=== PATIENT | male | born 1965 | race Caucasian/White ===

== ENCOUNTER 2018-03-02 05:42 | Emergency (ER) | payer OTHER ==
--- NOTE | 2018-03-02 06:16 | EDM.PDOC ---
ED HPI GENERAL MEDICAL PROBLEM - General Chief Complaint: Upper Extremity Injury/Pain Stated Complaint: INJURED R SHOULDER & SIDE AT WORK Time Seen by Provider: 03/02/18 06:10 Source of Information: Reports: Patient History Limitations: Reports: No Limitations - History of Present Illness INITIAL COMMENTS - FREE TEXT/NARRATIVE: 53-year-old male attends the ED due to pain in his anterior posterior right shoulder and the distribution of the right posterior lateral chest particular in the distribution of the latissimus dorsi muscle. He reports he was injured in the workplace about 10:30 yesterday morning. States he was pushing a hole was off of the truck and it became entangled in a bracket and sprung back on him creating a tremendous jolt or jerking movement involving his right arm and shoulder. He appreciated pain in the superior part of her shoulder in the distribution of the trapezius and superior spinatus muscle group most of the day. Hour during the night he is developed increased pain in his right posterior lateral ribs and thorax in the distribution of the latissimus dorsi muscle. He also appreciates a prominent bone on his anterior right shoulder that was not there prior. Clinically it appears that he is his A-C joint. He states the only thing that kept him from falling backwards onto the ground was 90 was still hanging onto the hose. Been taking Motrin 200 mg when necessary and Tylenol with minimal relief. Did not sleep very well last night. 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 Onset: Sudden Onset Date: 03/01/18 Onset Time: 10:30 (Work related injury as described above) Duration: Hour(s): Location: Reports: Chest (Right posterior lateral thorax), Upper Extremity, Right (Right shoulder and acromioclavicular joint area.) Quality: Reports: Ache, Sharp, Stabbing (With certain movements) Severity: Moderate Improves with: Reports: Rest Worsens with: Reports: Movement (Of the right arm. Particularly forward flexing or abducting.) Context: Reports: Trauma (Bilaterally jerked/jolted by pushing a large hose off of his truck yesterday when it became entangled in a bracket.). Denies: Activity, Exercise, Lifting, Sick Contact Associated Symptoms: Reports: Chest Pain. Denies: Confusion, Cough (Mr. 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, NSAIDS Right Shoulder Pain Score (Numeric/FACES): 9 - Related Data Allergies Allergy/AdvReac Type Severity Reaction Status Date / Time No Known Allergies Allergy Verified 03/04/18 08:55 Home Meds: Home Meds Diclofenac Sodium [Voltaren] 50 mg PO TID #24 tab.ec 03/02/18 [Rx] Past Medical History Musculoskeletal History: Reports: Other (See Below) Other Musculoskeletal History: tendon surgery - Past Surgical History GI Surgical History: Reports: Bariatric Procedure, Other (See Below) Other GI Surgeries/Procedures: gastric sleeve Social & Family History - Tobacco Use Smoking Status *Q: Light Tobacco Smoker Years of Tobacco use: 20 Packs/Tins Daily: 0.1 - Caffeine Use Caffeine Use: Reports: None - Recreational Drug Use Recreational Drug Use: No - Living Situation & Occupation Occupation: Employed Review of Systems - Review of Systems Review Of Systems: See Below Constitutional: Denies: Chills, Diaphoresis, Fever, Weakness, Other Eyes: Reports: No Symptoms Ears: Reports: No Symptoms Nose: Reports: No Symptoms, Previous Injury Respiratory: Reports: No Symptoms Cardiovascular: Reports: No Symptoms GI/Abdominal: Reports: No Symptoms Genitourinary: Reports: No Symptoms Musculoskeletal: Reports: Other (Has had previous biceps tendon surgery on the left side with reinsertion into the ulna. Current pain is in his right anterior shoulder with a prominent 8 acromioclavicular joint clinically. Pain through the posterior aspect of the shoulder and superior aspect of the shoulder and down along the posterior lateral) Skin: Reports: No Symptoms Neurological: Reports: Paresthesia (Some numbness and tingling into his right hand.) Psychiatric: Reports: Anxiety ED EXAM, GENERAL - Physical Exam Exam: See Below Exam Limited By: No Limitations General Appearance: Alert, Anxious, Moderate Distress Head: Atraumatic, Normocephalic Neck: Normal Inspection, Supple, Non-Tender, Limited Range of Motion, Other (He has increased pain in his right shoulder in the distribution of the supraspinatus and superior belly of the true right trapezius muscle with lateral flexion of his head to the left side.) Respiratory/Chest: No Respiratory Distress, Lungs Clear, Normal Breath Sounds, No Accessory Muscle Use Cardiovascular: Normal Peripheral Pulses, Regular Rate, Rhythm, No Edema, No Gallop, No Murmur Peripheral Pulses: 2+: Radial (L), Radial (R) Back Exam: Other (Patient is very tender to palpation in the distribution of the latissimus dorsi muscle down even to the 11th and 12th ribs laterally.) Extremities: Other (Patient has prominence of the acromioclavicular joint on the right side and is very tender to palpation. This suggests at least a grade 2 strain. He is tender in the short head of biceps tendon insertion as well as the coracoid process. Throughout the superior portion of the shoulder in the distribution of the superior belly of the trapezius and supraspinatus tendon. He is and unable to hold his right elbow abducted at 45 from his body when adduction forces applied to the elbow suggesting possible supraspinatus tear.) Neurological: Alert, Oriented, CN II-XII Intact, Normal Cognition Psychiatric: Anxious Skin Exam: Warm, Dry, Intact, Normal Color, No Rash Course - Vital Signs Last Recorded V/S: Last Vital Signs Temp 36.3 C 03/02/18 05:51 Pulse 70 03/02/18 05:51 Resp 18 03/02/18 05:51 BP 150/92 H 03/02/18 05:51 Pulse Ox 100 03/02/18 05:51 - Radiology Interpretation Free Text/Narrative:: 53-year-old male presents to the ED with acute injuries to his right shoulder and upper extremity. His injuries occurred in the workplace at 10:30 yesterday morning when a hose that he was pushing on from his truck became entangled in a bracket. Unclear how it coiled back and gave him such a jolt. He states the only reason he didn't fall as was the still hanging onto the hose. Subsequently developed pain across the top of his right shoulder into the base of his neck in the distribution of the trapezius and supraspinatus musculature. Over time his develop pain in his entire posterior lateral thorax in the distribution of the latissimus dorsi muscle and then this morning he appreciated that he had a bony protuberance anterior right shoulder which is very tender. This appears to be a separation of the acromioclavicular joint. The short head of the biceps tendon insertion site and in the coracoid process. As unable to hold his arm at 45 abduction against force due to pain in the shoulder. Possible rotator cuff tear. Plan x-ray of the right shoulder to be done and chest x-ray with right rib detail. He was knocked backwards but he doesn't believe that his ribs came in contact with any part of the truck but he can't remember for sure. - Re-Assessments/Exams Free Text/Narrative Re-Assessment/Exam: 03/02/18 06:46 Chest x-ray with right rib detail is within normal limits showing no fractures. Similarly x-rays of the right shoulder show some degenerative changes at the acromioclavicular joint but no fracture or definitive separation. Injuries are mostly musculoskeletal strain in origin. He essentially is going to need some time off for these to recover likely about a week. I will place him on Voltaren 50 mg 3 times daily for [address] him in an arm sling for the next 3 days. I will have him follow-up with his personal care physician in a week's time to see if he is fit to return to work. Departure - Departure Time of Disposition: 06:48 Disposition: Home, Self-Care 01 Condition: Fair Clinical Impression: Strain of other muscles, fascia and tendons at shoulder and upper arm level, right arm, initial encounter Acromioclavicular (joint) (ligament) sprain Qualifiers: Encounter type: initial encounter Laterality: right Qualified Code(s): S43.51XA - Sprain of right acromioclavicular joint, initial encounter Strain of latissimus dorsi muscle Qualifiers: Encounter type: initial encounter Qualified Code(s): S29.012A - Strain of muscle and tendon of back wall of thorax, initial encounter - Discharge Information *PRESCRIPTION DRUG MONITORING PROGRAM REVIEWED*: Not Applicable *COPY OF PRESCRIPTION DRUG MONITORING REPORT IN PATIENT EARL: Not Applicable Prescriptions: Diclofenac Sodium [Voltaren] 50 mg PO TID #24 tab.ec Instructions: Shoulder Pain, [id number], Muscle Strain, [id number] Referrals: PCP,None [Primary Care Provider] - Forms: ED Department Discharge, ED Return to Work/School Form Additional Instructions: Evaluation in the emergency room this morning in regards to injuries sustained to the right shoulder and upper back musculature from work-related accident yesterday morning. By history you took a severe jolt/jerk type injury to the right arm and shoulder. You have pain throughout the anterior shoulder in the distribution of the short head of the biceps tendon and the top of your shoulder in the distribution of the trapezius and supraspinatus tendons. You also tenderness over your acromioclavicular joint with mild bony prominence of the end of your collar bone . Secondly pain appreciated throughout the latissimus dorsi musculature of the right upper back and ribs. X-rays of the ribs reveal no fractures. X-ray of the right shoulder also shows no fractures or displacement of the acromioclavicular joint. This means you have suffered a grade 1 strain of the acromioclavicular joint which will heal over the next 10- 14 days. Injuries are all soft tissue in origin which means muscles and ligament strain. Treatment is time to heal. Will likely not be able to return to work for about a week. Just right arm sling for comfort for the next 3 days and then you may take it off. Ice pack to your shoulder one half hour out of every 4 hours today. Medication will be Voltaren 50 mg 3 times daily for the next 8 days to reduce pain and inflammation. You'll need to follow-up with a doctor in about a week's time to make sure you are getting better and fit to return to work. Not have a primary care physician suggest follow-up with nurse practitioners on the other side of the hospital i.e. family medicine clinic. I would suggest either Alee Suazo or Celi Kapoor.. Please call [phone] to arrange an appointment in one week's time.
--- NOTE | 2018-03-02 07:13 | CR ---
Chest and right ribs: Frontal view of the chest was obtained as well as three views of the right ribs Comparison: No previous study. Heart size and mediastinum are normal. Lungs are clear without acute parenchymal change. No discrete rib abnormality is appreciated. Minimal scoliosis is noted. Impression: 1. Nothing acute is seen on frontal chest x-ray. No discrete right sided rib abnormality is appreciated. Diagnostic code #1
--- NOTE | 2018-03-02 07:13 | CR ---
Right shoulder: Three views of the right shoulder were obtained. Minimal inferior spurring off the distal clavicle is seen at the acromioclavicular joint. Small bone island is noted within the humeral head. Glenohumeral joint appears within normal limits. No fracture or other bony abnormality is seen. Impression: 1. Incidental findings. Nothing acute is seen on three-view right shoulder study. Diagnostic code #2
== END 2018-03-02 07:20 | disposition home or self-care (01) ==
LOC: JD.ED 05:42
DX: S43.51XA Sprain of right acromioclavicular joint, initial encounter (principal); S46.911A Strain of unspecified muscle, fascia and tendon at shoulder and upper arm level, right arm, initial encounter; S29.012A Strain of muscle and tendon of back wall of thorax, initial encounter; F17.210 Nicotine dependence, cigarettes, uncomplicated; X50.9XXA Other and unspecified overexertion or strenuous movements or postures, initial encounter
CPT/HCPCS: 71101-26-RT; 71101-RT; 73030-26-RT; 73030-RT; 99283; 99284

== ENCOUNTER 2019-04-19 14:09 | Emergency (ER) | payer OTHER ==
--- NOTE | 2019-04-19 14:31 | EDM.PDOC ---
ED HPI GENERAL MEDICAL PROBLEM - General Chief Complaint: Head Injury Stated Complaint: HEAD INJURY Time Seen by Provider: 04/19/19 14:22 Source of Information: Reports: Patient History Limitations: Reports: No Limitations - History of Present Illness INITIAL COMMENTS - FREE TEXT/NARRATIVE: 54-year-old male reports to the ED for evaluation of closed head injury that occurred about 1750 hrs. yesterday evening in the workplace. States that they were using a piece of machinery to further drill out a hole when it suddenly came loose as they were pulling it out of the hole and it struck him in the anterior chest and propelled him backwards 8-10 feet where he fell hard on pavement. He struck the occipital aspect of his head very hard on the pavement. He did not lose consciousness. He states he was dazed and confused a little bit afterwards. Work was done and by 6:30 and he went home. This morning he felt a bit off when he tried to get up out of bed i.e. balance was not quite right. He' s walked into several things today because of loss of balance. Eyesight may be a little bit trouble focusing at times. Mild headache. No nausea. Clinically has signs and symptoms of a concussion. He states that his coworkers are also stating that he is exhibiting some perseveration asking the same questions over and over again and seems to be having some trouble processing things to memory. He has a [employer] license and didn't feel safe to drive this morning and therefore called a coworker for a ride to work. He has hard time stating what is wrong he just feels "off." Onset: Sudden Onset Date: 04/18/19 Onset Time: 17:50 Duration: Hour(s):, Waxing/Waning Location: Reports: Head (Occipital head), Chest (Anterior left chest) Quality: Reports: Ache, Other (Transient confusion. Prongs with balance.) Severity: Moderate Improves with: Reports: None Worsens with: Reports: None Context: Reports: Trauma (See history of present illness). Denies: Activity, Exercise, Lifting, Sick Contact Associated Symptoms: Reports: Chest Pain (Mild pinpoint chest pain left anterior chest), Other (Problems with balance). 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 below) (None.) - Related Data Allergies Allergy/AdvReac Type Severity Reaction Status Date / Time No Known Allergies Allergy Verified 03/04/18 08:55 Home Meds: Home Meds Esomeprazole Magnesium [Nexium 24Hr] 20 mg PO DAILY 04/19/19 [History] Past Medical History Gastrointestinal History: Reports: GERD Musculoskeletal History: Reports: Other (See Below) Other Musculoskeletal History: tendon surgery - Past Surgical History GI Surgical History: Reports: Bariatric Procedure Social & Family History - Caffeine Use Caffeine Use: Reports: None - Living Situation & Occupation Living situation: Reports: Single, Alone Occupation: Employed ED ROS GENERAL - Review of Systems Review Of Systems: See Below Constitutional: Reports: Decreased Appetite. Denies: Fever, Chills, Malaise, Weakness, Fatigue, Weight Loss HEENT: Reports: Glasses (Only for driving.) Respiratory: Reports: No Symptoms Cardiovascular: Reports: No Symptoms Endocrine: Reports: No Symptoms GI/Abdominal: Reports: No Symptoms : Reports: No Symptoms Musculoskeletal: Reports: Other (Left anterior chest pain. Does not hurt to take a deep breath.) Skin: Reports: No Symptoms Neurological: Reports: Headache, Difficulty Walking, Gait Disturbance (A little off balance.). Denies: Confusion, Dizziness, Numbness, Paresthesia, Pre- Existing Deficit, Seizure, Syncope, Tingling (Mild), Tremors, Trouble Speaking ( Seems to be a little off balance and walking into things a couple times today.) , Weakness, Change in Speech Psychiatric: Reports: No Symptoms Hematologic/Lymphatic: Reports: No Symptoms Immunologic: Reports: No Symptoms ED EXAM, HEAD INJURY - Physical Exam Exam: See Below Exam Limited By: No Limitations General Appearance: Alert, WD/WN, No Apparent Distress, Other (Vital signs are all normal. Blood pressure slightly elevated 140 /07/27 but came down to 140/90 shortly after coming to the ED.) Head: Atraumatic, Normocephalic, Scalp Tenderness. No: Scalp Abrasions, Scalp Ecchymosis (Diffuse scalp tenderness mid occipital scalp. No defined hematoma or abrasions.), Scalp Hematoma, Active Bleeding, Sexton's Sign, Flap, Facial Abrasions, Facial Ecchymosis, Facial Lacerations, Facial Swelling, Sinus Tenderness, Facial Tenderness Nexus Criteria: Posterior, Midline Cervical Tenderness, Evidence of Intoxication , Altered Level of Consciousness, Focal Neurological Deficit, Painful Distraction Injuries Eyes: Bilateral Eye: Normal Inspection, PERRL Ears: Normal TMs Throat/Mouth: Normal Inspection, Normal Lips, Normal Teeth, Normal Oropharynx Neck: Non-Tender, Full Range of Motion, Normal Alignment, Normal Inspection Respiratory: No Respiratory Distress, Lungs Clear, Normal Breath Sounds, No Accessory Muscle Use, Other (Chest is tender to the left anterior ninth rib. Point tenderness. Take a full deep breath without any pain. No palpable subcutaneous emphysema or crepitation. No abrasions or ecchymoses in this area. No pain on firm compression of the sternum.) Cardiovascular: Normal Peripheral Pulses, Regular Rate, Rhythm, No Edema, No Gallop, No Murmur, No Rub GI/Abdominal Exam: Normal Bowel Sounds, Soft, Non-Tender, No Organomegaly, No Mass, Pelvis Stable, Rebound Back Exam: Normal Inspection, Full Range of Motion. No: CVA Tenderness (L), CVA Tenderness (R) Extremities: Normal Inspection, Normal Range of Motion, Non-Tender Neurologic: No Motor/Sensory Deficits, Alert, Normal Mood/Affect, Oriented x 3 Skin: Normal Color, Warm/Dry - [place] Coma Score Best Eye Response (Jorge): (4) Open Spontaneously Best Verbal Response (Jorge): (5) Oriented Best Motor Response ([place]): (6) Obeys Commands [place] Total: 15 Course - Vital Signs Last Recorded V/S: Last Vital Signs Temp 36.7 C 04/19/19 14:18 Pulse 56 L 04/19/19 14:18 Resp 16 04/19/19 14:18 BP 149/101 H 04/19/19 14:18 Pulse Ox 99 04/19/19 14:18 - Radiology Interpretation Free Text/Narrative:: 54-year-old male presents to the ED for evaluation of closed head injury that he suffered in the workplace yesterday about 1750 hrs. He was struck in the anterior chest by a piece of machinery off a skid steer that was remaining a hole in the ground. Propelled backwards about 8-10 feet and he landed hard striking the back of his head on pavement. He did not lose consciousness. He states he did get up right away but felt dazed and a bit off. Do much for the rest of her work shift which ended at 1830 hrs. This morning he did not feel well when he got up. He felt off balance and offkilter didn't feel good enough that he should be driving or operating a motor vehicle. He has a [employer] license and called a coworker for a ride to work work today coworkers and indicated that he seems to be asking the same questions over and over again at times. He is a little off balance and has walked into things that he normally would not walk into. Not aware of any real visual acuity changes. Does have a mild headache. Nausea vomiting. Exam in the ED is completely normal. Clinically he has signs and symptoms of a concussion. He did not have a hard hat on when he was injured. Plan will be to CT his head to rule out any intracranial pathology such as cerebral contusion. He has minimal tenderness left anterior ninth rib where he was struck by the steel object and minimal tenderness over the sternum without any abrasions or contusions. Point tenderness in this area but no fractures evident. His neck also has full range of motion without any signs of injury. - Re-Assessments/Exams Free Text/Narrative Re-Assessment/Exam: 04/19/19 14:49 CT of the head is completely within normal limits. There are no skull fractures no intracranial bleeding or mass effect appreciated. He has suffered a concussion. He prefers to stay in the workplace and alternative work versus staying at home. Advised he should not probably be operating a large motor vehicle until symptoms improve over the next 5 days. He states there is ground work that he can do and doesn't have to drive a motor vehicle. At present he is doing very well with only slightly impaired balance and therefore I will allow him to return to work. Departure - Departure Time of Disposition: 15:01 Disposition: Home, Self-Care 01 Condition: Fair Clinical Impression: Concussion with no loss of consciousness Closed head injury with concussion Qualifiers: Encounter type: initial encounter Loss of consciousness presence/duration: without LOC Qualified Code(s): S06.0X0A - Concussion without loss of consciousness, initial encounter - Discharge Information *PRESCRIPTION DRUG MONITORING PROGRAM REVIEWED*: Not Applicable *COPY OF PRESCRIPTION DRUG MONITORING REPORT IN PATIENT EARL: Not Applicable Instructions: Concussion, Adult, [id number] Referrals: PCP,None [Primary Care Provider] - Forms: ED Department Discharge, ED Return to Work/School Form Additional Instructions: Evaluation the emergency room today in regards to injuries sustained from a work -related accident yesterday evening. He was struck in the anterior chest by a large piece of machinery which propelled backwards 8-10 feet causing and landed hard on the back of your head. Is no reported loss of consciousness but she did appreciate being dazed and not quite right after injury. 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 You have all the signs and symptoms of a mild concussion which means a bruise brain. CT of her head was carried out to make sure there were no internal injuries to the brain and no injuries were identified. There are no skull fractures and no intracranial bleeding or mass effect. Signs and symptoms of concussion which are impaired balance sometimes blurry vision transiently, headache and sometimes nausea for anywhere between 2 and 7 days. Suggest return to work with light duties and not operating a motor vehicle until he back to normal which will likely be next Thursday, April 25. May use Motrin 6 mg every 6 hours if needed for headache or pain in her neck or chest wall.
--- NOTE | 2019-04-19 15:07 | CT ---
Head CT Technique: Multiple axial sections through the brain were obtained. Intravenous contrast was not utilized. Comparison: No prior intracranial imaging is available. Findings: Ventricles along with basal cisterns and sulci over the convexities are mildly prominent. Mildly prominent cisterna magna is noted. No abnormal parenchymal densities are seen. No evidence of intracranial hemorrhage. No midline shift or mass effect is seen. Bone window settings were reviewed which shows no acute calvarial abnormality. Mild areas of mucosal thickening are seen within the right mastoid sinus. Visualized paranasal sinuses are clear. Impression: 1. Slight generalized atrophy. 2. Mild mucosal thickening within the right mastoid sinus which is likely incidental if patient has no symptoms of mastoiditis. 3. No acute intracranial abnormality is identified. Diagnostic code #2
== END 2019-04-19 15:13 | disposition home or self-care (01) ==
LOC: JD.ED 14:09
DX: S06.0X0A Concussion without loss of consciousness, initial encounter (principal); R07.89 Other chest pain; K21.9 Gastro-esophageal reflux disease without esophagitis; Z79.899 Other long term (current) drug therapy; W20.8XXA Other cause of strike by thrown, projected or falling object, initial encounter
CPT/HCPCS: 70450; 70450-26; 99283; 99283-25

== ENCOUNTER 2021-02-08 07:12 | Emergency (ER) | payer SELFPAY ==
[2021-02-08] MEDS ORDERED: Sodium Chloride 0.9% 10 ML Syringe FLUSH PRN (08:41)
[2021-02-08] MEDS ORDERED: HYDROmorphone 1 MG/ML Syringe IVPUSH ONE (08:42)
[2021-02-08] MEDS ORDERED: HYDROmorphone 1 MG/ML Syringe ONE (09:11)
[2021-02-08] MEDS ORDERED: HYDROmorphone 1 MG/ML Syringe IM ONE (09:17)
--- NOTE | 2021-02-08 09:40 | CT ---
CT cervical spine Technique: Multiple axial sections were obtained from above the C1 level inferiorly to the top of T2. Reconstructed coronal and sagittal images were obtained. Comparison: No prior cervical spine imaging is available. Findings: Scattered degenerative apophyseal change is seen which is most severe on the left side at C2-3 and C3-4. Diffuse disc space narrowing is seen which is most severe at C5-6 and C6-7. Diffuse anterior osteophytes are seen. Diffuse posterior osteophytes are noted. Severe left-sided neural foraminal stenosis and mild to moderate right-sided neural foraminal stenosis is seen at C3-4. Mild left-sided neural foraminal stenosis is noted at C4-5. Severe right-sided neural foraminal stenosis is noted at C5-6. Moderate bilateral neural foraminal stenosis is noted at C6-7. Other neural foramina are felt to be patent. No bony central canal stenosis is appreciated. Degenerative change is noted throughout the uncovertebral joints with prominent spurring noted at C5-6 and C6-7. No acute fracture or subluxation is seen. Visualized lung apices are clear. Impression: 1. Diffuse degenerative change as noted above. 2. No acute fracture or abnormal subluxation is seen. Diagnostic code #2
--- NOTE | 2021-02-08 09:43 | CT ---
Head CT Technique: Multiple axial sections through the brain were obtained. Intravenous contrast was not utilized. Comparison: Prior head CT study of 04/19/19. Findings: Ventricles along with basal cisterns and sulci over the convexities are mildly prominent. Slightly prominent cisterna magna is noted which is stable in appearance. No abnormal parenchymal densities are seen. No evidence of intracranial hemorrhage is seen. No midline shift or mass-effect is seen. Bone window settings were reviewed which show no acute calvarial abnormality. Visualized mastoid sinuses show minimal mucosal thickening on the right side which appears chronic. No acute paranasal sinus findings are seen. Impression: 1. Nothing acute is appreciated on noncontrasted CT study. 2. Other findings believed to be incidental as noted above. Diagnostic code #2
--- NOTE | 2021-02-08 09:48 | CT ---
CT thoracic spine Technique: Multiple axial sections were obtained through the thoracic spine. Reconstructed coronal and sagittal images were obtained. Comparison: No prior thoracic spine study is available. Findings: Diffuse disc space narrowing is scattered within the thoracic and lumbar spine. Cervical spine shows neural foraminal stenosis which are described in more detail on cervical spine exam report. Thoracic spine shows no discrete neural foraminal stenosis. No central canal stenosis is appreciated. No significant posterior spurring is seen within the thoracic spine. Mild scattered anterior endplate osteophytes are seen. Scattered vertebral vacuum disc phenomena are seen within the thoracic spine. Visualized lungs show no acute abnormality. No soft tissue swelling is seen within the paravertebral regions. Hiatal hernia is noted. Previous surgery within the stomach is partially seen. No acute fracture or abnormal subluxation is seen. Impression: 1. Mild diffuse degenerative change as described above. 2. Hiatal hernia. Prior stomach surgery. 3. No acute fracture or subluxation is seen. Diagnostic code #2
--- NOTE | 2021-02-08 10:27 | EDM.PDOC ---
ED HPI GENERAL MEDICAL PROBLEM - General Chief Complaint: Back Pain or Injury Stated Complaint: BACK AND NECK PAIN Time Seen by Provider: 02/08/21 08:32 Source of Information: Reports: Patient History Limitations: Reports: No Limitations - History of Present Illness INITIAL COMMENTS - FREE TEXT/NARRATIVE: The patient presents with a headache, neck pain and upper back pain. He said this happened lat night. He went up the steps to his room and opened the door and the next think he knows he is on the ground seeing stars. He does not think he had any LOC. He has a headache to the back of his head, neck pain and upper back pain. He did not get any sleep last night. He has no numbness or weakness. He has no bowel or bladder problems. He has no fever, chills, cough, chest pain or shortness of breath. Onset: Sudden Duration: Day(s): (last night) Location: Reports: Head, Neck, Back Quality: Reports: Sharp Severity: Severe Improves with: Reports: Immobilization Worsens with: Reports: Movement Context: Reports: Trauma (fell) Associated Symptoms: Reports: Headaches. Denies: Chest Pain, Fever/Chills, Nausea/Vomiting, Shortness of Breath Upper Back Pain Score (Numeric/FACES): 10 - Related Data Allergies Allergy/AdvReac Type Severity Reaction Status Date / Time No Known Allergies Allergy Verified 02/08/21 08:31 Home Meds: Home Meds Esomeprazole Magnesium [Nexium 24Hr] 20 mg PO DAILY 04/19/19 [History] Cyclobenzaprine [Flexeril] 10 mg PO TID PRN #20 tab 02/08/21 [Rx] Hydrocodone/Acetaminophen [Hydrocodone-Acetamin 5-325 mg] 1 - 2 each PO Q6H PRN #10 tablet 02/08/21 [Rx] Past Medical History HEENT History: Reports: Impaired Vision Other HEENT History: wears eyeglasses with driving. Gastrointestinal History: Reports: GERD Musculoskeletal History: Reports: Other (See Below) Other Musculoskeletal History: tendon surgery - Infectious Disease History Infectious Disease History: Reports: Chicken Pox, Measles - Past Surgical History GI Surgical History: Reports: Bariatric Procedure Other GI Surgeries/Procedures: gastric sleeve Musculoskeletal Surgical History: Reports: Other (See Below) Other Musculoskeletal Surgeries/Procedures:: tendon surgery to L) arm. Social & Family History - Family History Family Medical History: No Pertinent Family History - Tobacco Use Tobacco Use Status *Q: Current Every Day Tobacco User Years of Tobacco use: 20 Packs/Tins Daily: 0.5 - Caffeine Use Caffeine Use: Reports: Energy Drinks - Recreational Drug Use Recreational Drug Use: No - Living Situation & Occupation Living situation: Reports: Single, Alone Occupation: Employed ED ROS GENERAL - Review of Systems Review Of Systems: See Below Constitutional: Reports: No Symptoms HEENT: Reports: No Symptoms Respiratory: Reports: No Symptoms Cardiovascular: Reports: No Symptoms Endocrine: Reports: No Symptoms GI/Abdominal: Reports: No Symptoms : Reports: No Symptoms Musculoskeletal: Reports: Neck Pain, Back Pain Skin: Reports: No Symptoms Neurological: Reports: Headache. Denies: Numbness, Weakness ED EXAM, UPPER BACK/NECK PAIN - Physical Exam Exam: See Below Exam Limited By: No Limitations General Appearance: Alert, No Apparent Distress Ears Exam: Normal External Exam Throat/Mouth Exam: Normal Inspection Head Exam: Other (Pain upon palpation to the back of his head) Neck Exam: Tenderness (moderate tenderness to the mid spine) Cardiovascular/Respiratory: Regular Rate, Rhythm, No M/R/G, Normal Peripheral Pulses, Normal Breath Sounds, No Respiratory Distress GI/Abdominal: Soft, Non-Tender, No Organomegaly, No Mass Back Exam: Other (Pain upon palpation to the upper thoracic spine) Extremities: Normal Inspection Neurologic: No Motor/Sensory Deficits, Alert, Normal Mood/Affect, Oriented x 3 #1 Interpretation EKG Date: 02/08/21 Time: 08:53 Rhythm: NSR Rate (Beats/Min): 65 Innis: LAD-Left Innis Deviation P-Wave: Present QRS: Normal ST-T: Normal QT: Normal Course - Vital Signs Last Recorded V/S: Last Vital Signs Temp 96.3 F L 02/08/21 08:20 Pulse 84 02/08/21 08:20 Resp 18 02/08/21 08:20 BP 175/118 H 02/08/21 08:20 Pulse Ox 97 02/08/21 08:20 - Orders/Labs/Meds Orders: Active Orders 24 hr Category Date Time Status Cardiac Monitoring [RC] . DIRECTED Care 02/08/21 08:41 Active EKG Documentation Completion [RC] STAT Care 02/08/21 08:41 Active Peripheral IV Care [RC] . DIRECTED Care 02/08/21 08:41 Active Sodium Chloride 0.9% [Saline Flush] Med 02/08/21 08:41 Active 10 ml FLUSH ASDIRECTED PRN Peripheral IV Insertion Adult [OM.PC] Stat Oth 02/08/21 08:41 Ordered Medication Orders Sodium Chloride (Sodium Chloride 0.9% 10 Ml Syringe) 10 ml FLUSH ASDIRECTED PRN PRN Reason: Keep Vein Open Labs: Laboratory Tests 02/08/21 02/08/21 Range/Units 09:24 09:24 WBC 5.39 (4.23-9.07) K/mm3 RBC 5.01 (4.63-6.08) M/mm3 Hgb 15.3 (13.7-17.5) gm/dl Hct 44.8 (40.1-51.0) % MCV 89.4 (79.0-92.2) fl MCH 30.5 (25.7-32.2) pg MCHC 34.2 (32.2-35.5) g/dl RDW Std Deviation 45.9 H (35.1-43.9) fL Plt Count 183 (163-337) K/mm3 MPV 10.2 (9.4-12.3) fl Neut % (Auto) 66.4 (34.0-67.9) % Lymph % (Auto) 23.6 (21.8-53.1) % Robeson % (Auto) 8.5 (5.3-12.2) % Eos % (Auto) 1.1 (0.8-7.0) Baso % (Auto) 0.2 (0.1-1.2) % Neut # (Auto) 3.58 (1.78-5.38) K/mm3 Lymph # (Auto) 1.27 L (1.32-3.57) K/mm3 Robeson # (Auto) 0.46 (0.30-0.82) K/mm3 Eos # (Auto) 0.06 (0.04-0.54) K/mm3 Baso # (Auto) 0.01 (0.01-0.08) K/mm3 Sodium 142 (136-145) mEq/L Potassium 4.2 (3.5-5.1) mEq/L Chloride 106 (98-107) mEq/L Carbon Dioxide 28 (21-32) mEq/L Anion Gap 12.2 (5-15) BUN 16 (7-18) mg/dL Creatinine 0.9 (0.7-1.3) mg/dL Est Cr Clr Drug Dosing 93.83 mL/min Estimated GFR (MDRD) > 60 (>60) mL/min BUN/Creatinine Ratio 17.8 (14-18) Glucose 93 (70-99) mg/dL Calcium 8.9 (8.5-10.1) mg/dL Total Bilirubin 0.7 (0.2-1.0) mg/dL AST 21 (15-37) U/L ALT 24 (16-63) U/L Alkaline Phosphatase 51 (46-116) U/L Troponin I < 0.017 (0.00-0.056) ng/mL Total Protein 6.9 (6.4-8.2) g/dl Albumin 3.6 (3.4-5.0) g/dl Globulin 3.3 gm/dL Albumin/Globulin Ratio 1.1 (1-2) Meds: Medications Generic Name Dose Route Start Last Admin Trade Name Freq PRN Reason Stop Dose Admin Sodium Chloride 10 ml 02/08/21 08:41 Sodium Chloride 0.9% 10 Ml Syringe FLUSH ASDIRECTED PRN Keep Vein Open Discontinued Medications Generic Name Dose Route Start Last Admin Trade Name Freq PRN Reason Stop Dose Admin Hydromorphone HCl 1 mg 02/08/21 08:42 Hydromorphone 1 Mg/Ml Syringe IVPUSH 02/08/21 08:43 ONETIME ONE Hydromorphone HCl Confirm 02/08/21 09:11 Hydromorphone 1 Mg/Ml Syringe Administered 02/08/21 09:12 Dose 1 mg .ROUTE .STK-MED ONE Hydromorphone HCl 1 mg 02/08/21 09:17 02/08/21 09:21 Hydromorphone 1 Mg/Ml Syringe IM 02/08/21 09:18 1 mg ONETIME ONE Administration - Re-Assessments/Exams Free Text/Narrative Re-Assessment/Exam: 02/08/21 10:27 I ordered dilaudid 1mg IM, EKG, CT of the head, cervical spine and thoracic spine. I also ordered some labs. His EKG shows a NSR with no acute changes. The CT of his head, cervical spine and thoracic spine show nothing acute. His labs all look good. 02/08/21 10:35 I will discharge him home with something for pain. Departure - Departure Time of Disposition: 10:40 Disposition: Home, Self-Care 01 Condition: Good Clinical Impression: Fall Qualifiers: Encounter type: initial encounter Qualified Code(s): W19.XXXA - Unspecified fall, initial encounter Head injury Qualifiers: Encounter type: initial encounter Qualified Code(s): S09.90XA - Unspecified injury of head, initial encounter Cervical strain, acute Qualifiers: Encounter type: initial encounter Qualified Code(s): S16.1XXA - Strain of muscle, fascia and tendon at neck level, initial encounter Thoracic myofascial strain Qualifiers: Encounter type: initial encounter Qualified Code(s): S29.019A - Strain of muscle and tendon of unspecified wall of thorax, initial encounter - Discharge Information *PRESCRIPTION DRUG MONITORING PROGRAM REVIEWED*: Not Applicable *COPY OF PRESCRIPTION DRUG MONITORING REPORT IN PATIENT EAR[place]: Not Applicable Prescriptions: Cyclobenzaprine [Flexeril] 10 mg PO TID PRN #20 tab PRN Reason: Pain Hydrocodone/Acetaminophen [Hydrocodone-Acetamin 5-325 mg] 1 - 2 each PO Q6H PRN #10 tablet PRN Reason: Pain Referrals: PCP,None [Primary Care Provider] - Nery Quiroga NP [Nurse Practitioner] - 1 Week Forms: ED Department Discharge Additional Instructions: Take tylenol or motrin for pain. If that does not help, try the flexeril and hydrocodone. Do not drive when taking these 2 medications. Ice the areas that hurt for 15 minutes 3 times per day for 2 days. Please return if you are worse. Sepsis Event Note (ED) - Evaluation Sepsis Screening Result: No Definite Risk - Focused Exam Vital Signs: Vital Signs Temp Pulse Resp BP Pulse Ox 02/08/21 08:20 96.3 F L 84 18 175/118 H 97 - My Orders Last 24 Hours: My Active Orders 02/08/21 08:41 Cardiac Monitoring [RC] . DIRECTED EKG Documentation Completion [RC] STAT Peripheral IV Care [RC] . DIRECTED Sodium Chloride 0.9% [Saline Flush] 10 ml FLUSH ASDIRECTED PRN Peripheral IV Insertion Adult [OM.PC] Stat - Assessment/Plan Last 24 Hours: My Active Orders 02/08/21 08:41 Cardiac Monitoring [RC] . DIRECTED EKG Documentation Completion [RC] STAT Peripheral IV Care [RC] . DIRECTED Sodium Chloride 0.9% [Saline Flush] 10 ml FLUSH ASDIRECTED PRN Peripheral IV Insertion Adult [OM.PC] Stat
== END 2021-02-08 10:46 | disposition home or self-care (01) ==
LOC: JD.ED 07:12
DX: S16.1XXA Strain of muscle, fascia and tendon at neck level, initial encounter (principal); S29.019A Strain of muscle and tendon of unspecified wall of thorax, initial encounter; S09.90XA Unspecified injury of head, initial encounter; Z72.0 Tobacco use; W10.9XXA Fall (on) (from) unspecified stairs and steps, initial encounter; Y92.009 Unspecified place in unspecified non-institutional (private) residence as the place of occurrence of the external cause
CPT/HCPCS: 36415; 70450; 72125; 72128; 80053; 84484; 85025; 93005; 96372; 99284; J1170; 93010; 99283